=== PATIENT | female | born 1975 | race Caucasian/White ===

== ENCOUNTER 2017-03-31 09:57 | Emergency (ER) | payer MEDICAID ==
[~2017-03-31] VITALS: Ht 167.6 cm; Wt 90.0 kg
[2017-03-31 10:00] VITALS: Ht 167.6 cm; Wt 90.0 kg
[2017-03-31] MEDS ORDERED: ONDANSETRON 4 MG INJ IV STA (10:59)
[2017-03-31] MEDS ORDERED: SOD CHLORIDE 0.9% 1,000 ML IV STA (10:59)
[2017-03-31] MEDS ORDERED: MECLIZINE 12.5 MG TAB PO ONE (11:00)
[2017-03-31 11:57] LABS: BASOPHIL # 0.1 10^3/ul (0.0-0.1); BASOPHILS % 0.6 % (0.0-2.0); EOSINOPHILS # 0.1 10^3/ul (0.0-0.5); EOSINOPHILS % 0.7 % (0.0-7.0); HEMATOCRIT 41.2 % (37.0-47.0); HEMOGLOBIN 14.3 g/dl (12.0-16.0); LYMPHOCYTES # 1.3 10^3/ul (0.8-2.9); LYMPHOCYTES % 11.6 % (15.0-51.0); MEAN CORPUSCULAR HEMOGLOBIN 30.3 pg (29.0-33.0); MEAN CORPUSCULAR HGB CONC 34.7 g/dl (32.0-37.0); MEAN CORPUSCULAR VOLUME 87.3 fl (82.0-101.0); MEAN PLATELET VOLUME 10.1 fl (7.4-10.4); MONOCYTE # 0.6 10^3/ul (0.3-0.9); MONOCYTES % 5.5 % (0.0-11.0); NEUTROPHIL # 8.9 10^3/ul (1.6-7.5); NEUTROPHILS % 81.1 % (39.0-77.0); PLATELET COUNT 286 10^3/UL (140-415); RED BLOOD COUNT 4.72 10^6/ul (4.20-5.40); RED CELL DISTRIBUTION WIDTH 13.1 % (11.5-14.5)
[2017-03-31 12:22] LABS: ALANINE AMINOTRANSFERASE 34 IU/L (13-69); ALBUMIN 4.5 g/dl (3.3-4.9); ALBUMIN/GLOBULIN RATIO 1.15; ALKALINE PHOSPHATASE 111 IU/L (42-121); ANION GAP 16 (8-16); ASPARTATE AMINO TRANSFERASE 30 IU/L (15-46); BILIRUBIN,INDIRECT 0.4 mg/dl (0-1.1); BILIRUBIN,TOTAL 0.4 mg/dl (0.2-1.3); BLOOD UREA NITROGEN 9 mg/dl (7-20); CALCIUM 9.6 mg/dl (8.4-10.2); CARBON DIOXIDE 27 mmol/L (21-31); CHLORIDE 104 mmol/L (97-110); CREATININE 0.77 mg/dl (0.44-1.00); GLUCOSE 111 mg/dl (70-220); POTASSIUM 4.1 mmol/L (3.5-5.1); SODIUM 143 mmol/L (135-144); TOTAL PROTEIN 8.4 g/dl (6.1-8.1)
[2017-03-31 12:34] LABS: TROPONIN-I < 0.012 ng/ml (0.00-0.12)
[2017-03-31 13:00] LABS: ADD UMIC NO; UR ASCORBIC ACID NEGATIVE (NEGATIVE); UR BILIRUBIN (Dip) NEGATIVE (NEGATIVE); UR BLOOD (Dip) NEGATIVE (NEGATIVE); UR CLARITY CLEAR (CLEAR); UR COLOR STRAW (YELLOW); UR GLUCOSE (Dip) NEGATIVE (NEGATIVE); UR KETONES (Dip) 1+ mg/dL (NEGATIVE); UR LEUKOCYTE ESTERASE (Dip) NEGATIVE Leu/ul (NEGATIVE); UR NITRITE (Dip) NEGATIVE (NEGATIVE); UR SPECIFIC GRAVITY (Dip) 1.008 (1.003-1.030); UR TOTAL PROTEIN (Dip) NEGATIVE (NEGATIVE); UR UROBILINOGEN (Dip) NEGATIVE (NEGATIVE)
[2017-03-31] MEDS ORDERED: ONDA4TAB14 PO (13:40)
[2017-03-31] MEDS ORDERED: MECL12.574 PO (13:40)
[2017-03-31] MEDS ORDERED: ACETAMINOPHEN 500 MG TAB PO STA (13:50)
[2017-03-31 13:56] VITALS: BP 134/79; PULSE 73; RESP 16; TEMP 98.3
--- NOTE | 2017-03-31 19:30 | ERD ---
ER Documentation Chief Complaint Chief Complaint Complains of nausea nad vomiting x 2 days HPI Patient is a 41-year-old female with past medical history of hypertension who presents to the ED for concerns of nausea, vomiting, diarrhea 2 days. Patient reports approximately 8-10 episodes of nonbloody, nonbilious vomiting this morning. Patient reports 2-3 episodes of nonbloody, non-mucousy diarrhea. Patient states she started to feel dizzy this morning. Patient states that she feels a room spinning sensation, which is worse with movement especially when standing up. At rest she states dizziness is minimal. Patient denies any headache, visual changes, chest pain, shortness of breath, abdominal pain, back pain or loss consciousness. Patient states she had a [employer] sandwich previous to the onset of her vomiting and diarrhea. Patient denies any slurred speech, unilateral weakness, diplopia, hearing loss. ROS All systems reviewed and are negative except as per history of present illness. Medications Home Meds Active Scripts Ondansetron (Ondansetron Odt) 4 Mg Tab.rapdis, 4 MG PO Q6H Y for NAUSEA AND/OR VOMITING, #10 TAB Prov:NICHOLAS BRAND PA-C 03/31/17 Meclizine Hcl* (Antivert*) 12.5 Mg Tab, 12.5 MG PO Q6H Y for DIZZINESS, #20 TAB Prov:NICHOLAS BRAND PA-C 03/31/17 PMhx/Soc Hx Cardiac Disorders: Yes (Hypertension) Hx Alcohol Use: No Hx Substance Use: No Hx Tobacco Use: No Physical Exam Vitals Vital Signs Date Time Temp Pulse Resp B/P Pulse Ox O2 Delivery O2 Flow Rate FiO2 03/31/17 13:56 98.3 73 16 134/79 100 03/31/17 10:00 97.2 71 20 161/90 100 Physical Exam GENERAL: Well-developed, well-nourished female. Appears in no acute distress. HEAD: Normocephalic, atraumatic. No deformities or ecchymosis. EYE: Pupils equal, round, and reactive to light. Horizontal nystagmus noted when testing EOMs. O conjunctival erythema. No eye discharge. ENT: External ear without any masses or tenderness. Oropharynx is pink without any tonsillar erythema or exudates. No uvula deviation. No kissing tonsils. NECK: Supple. No meningismus. Normal ROM of the neck. LUNG: Clear to auscultation bilaterally. No rhonchi, wheezing, rales or coarse breath sounds. HEART: Regular rate and rhythm. No murmurs, rubs or gallops. ABDOMEN: Soft, nontender, and nondistended. No rebound tenderness, no guarding. (-) McBurney's point tenderness. No CVA tenderness. EXTREMITES: Equal pulses bilaterally. No peripheral clubbing, cyanosis or edema. No unilateral leg swelling. NEUROLOGIC: Alert and oriented x3, cooperative. Mood and affect appropriate to situation. Cranial nerves II through XII are grossly intact. Normal speech. Motor exam: 5/5 strength in upper and lower extremities. Sensory exam: Sensation intact to light touch on all four extremities. Steady gait. No pronator drift. SKIN: Normal color. Warm and dry. No rashes or lesions. Result Diagram: 03/31/17 1150 03/31/17 1150 Results 24 hrs Laboratory Tests Test 03/31/17 11:50 03/31/17 12:00 White Blood Count 11.010^3/ul Red Blood Count 4.7210^6/ul Hemoglobin 14.3g/dl Hematocrit 41.2% Mean Corpuscular Volume 87.3fl Mean Corpuscular Hemoglobin 30.3pg Mean Corpuscular Hemoglobin Concent 34.7g/dl Red Cell Distribution Width 13.1% Platelet Count 95400^3/UL Mean Platelet Volume 10.1fl Neutrophils % 81.1% Lymphocytes % 11.6% Monocytes % 5.5% Eosinophils % 0.7% Basophils % 0.6% Nucleated Red Blood Cells % 0.0/100WBC Neutrophils # 8.910^3/ul Lymphocytes # 1.310^3/ul Monocytes # 0.610^3/ul Eosinophils # 0.110^3/ul Basophils # 0.110^3/ul Nucleated Red Blood Cells # 0.010^3/ul Sodium Level 143mmol/L Potassium Level 4.1mmol/L Chloride Level 104mmol/L Carbon Dioxide Level 27mmol/L Anion Gap 16 Blood Urea Nitrogen 9mg/dl Creatinine 0.77mg/dl Glucose Level 111mg/dl Calcium Level 9.6mg/dl Total Bilirubin 0.4mg/dl Direct Bilirubin 0.00mg/dl Indirect Bilirubin 0.4mg/dl Aspartate Amino Transf (AST/SGOT) 30IU/L Alanine Aminotransferase (ALT/SGPT) 34IU/L Alkaline Phosphatase 111IU/L Troponin I < 0.012ng/ml Total Protein 8.4g/dl Albumin 4.5g/dl Globulin 3.90g/dl Albumin/Globulin Ratio 1.15 Lipase 191U/L Urine Color STRAW Urine Clarity CLEAR Urine pH 7.0 Urine Specific Trumann 1.008 Urine Ketones 1+mg/dL Urine Nitrite NEGATIVEmg/dL Urine Bilirubin NEGATIVEmg/dL Urine Urobilinogen NEGATIVEmg/dL Urine Leukocyte Esterase NEGATIVELeu/ul Urine Hemoglobin NEGATIVEmg/dL Urine Glucose NEGATIVEmg/dL Urine Total Protein NEGATIVEmg/dl Current Medications Medications (Trade) Dose Ordered Sig/Priya Route PRN Reason Start Time Stop Time Status Last Admin Dose Admin Sodium Chloride (NS) 1,000 ml @ 1,000 mls/hr Q1H STAT IV 03/31/17 10:59 03/31/17 11:58 DC 03/31/17 11:45 Ondansetron HCl (Zofran Inj) 4 mg ONCE STAT IV 03/31/17 10:59 03/31/17 11:02 DC 03/31/17 11:49 Meclizine HCl (Antivert) 12.5 mg ONCE ONCE PO 03/31/17 11:00 03/31/17 11:02 DC 03/31/17 11:49 Acetaminophen (Tylenol Tab) 500 mg ONCE STAT PO 03/31/17 13:50 03/31/17 13:51 DC 03/31/17 13:54 Procedures/MDM ED COURSE: The patient was stable throughout ED course. I kept the patient and/or family informed of laboratory and diagnostic imaging results throughout the ED course. EKG: Read by Dr. Ornelas, attending physician. EKG shows sinus bradycardia at a rate of 53 bpm. No arrhythmia or acute ST elevations were noted. MEDICATIONS GIVEN: IV fluids, Zofran, Meclizine Patient tolerated medication well with no adverse reactions. MEDICAL DECISION MAKING: This is a 41-year-old female with history of hypertension presents ED for concerns of nausea, vomiting and diarrhea 2 days. Patient states she started to feel dizzy this morning. Patient describes her dizziness to be a room spinning sensation. Patient states that the dizziness is worse with positional changes including when standing up.. Vital signs were reviewed. Patient was afebrile. Patient was not hypoxic. The patient denied hearing loss, diplopia, slurred speech, unilateral weakness or loss of consciousness. Patient denies any chest pain or shortness of breath. Physical exam findings did reveal that patient had a horizontal nystagmus likely consistent with peripheral vertigo. Full neuro exam was normal. Blood work was obtained. CBC, CMP, troponin are all negative. EKG showed sinus bradycardia, no ST elevations were noted. Patient was given IV fluids, meclizine and Zofran. Patient reported significant improvement in dizziness prior to discharge. Patient did report mild headache prior to discharge. Patient was given Tylenol at that time. Patient denied that it was a severe headache or the worst headache of her life. patient was monitored after receiving Tylenol and did report improvement of headache prior to discharge. At this time, patient's presentation is most consistent with vomiting and diarrhea likely a viral etiology and benign paroxysmal positional vertigo. Low suspicion for intracranial hemorrhage, cerebral infarct, multiple sclerosis, vestibular neuritis, ACS, arrhythmia, electrolyte deficiency, pancreatitis, DKA or an acute abdominal emergency. Patient was advised to continue to drink plenty of fluids and stay hydrated. Patient is given a copy of all imaging studies and blood work obtained today. PRESCRIPTIONS: Meclizine Zofran DISCHARGE: At this time, patient is stable for discharge and outpatient management. I have instructed the patient to follow-up with his/her primary care physician in 1-2 days. If symptoms persist, patient may need to see a specialist for further examinations and testing. I have instructed the patient to promptly return to the ER at any time for any new or worsening symptoms including increased increased pain, fever, nausea, vomiting, numbness, weakness, slurred speech, LOC. The patient and/or family expressed understanding of and agreement with this plan. All questions were answered. Home care instructions were provided. Patients blood pressure was elevated (>120/80) but appears stable without evidence of hypertensive emergency, hypertensive urgency or end-organ failure. I had discussion with the patient about the risks of hypertension. I have advised the patient to follow up with his/her primary care physician for outpatient monitoring and treatment for hypertension in 2-3 days. I have instructed the patient to return to the ER for any new or worsening symptoms including chest pain, shortness of breath, headache, blurred vision, confusion, nausea, vomiting or LOC. D isclaimer: Inadvertent spelling and grammatical errors are likely due to EHR/ dictation software use and do not reflect on the overall quality of patient care. Also, please note that the electronic time recorded on this note does not necessarily reflect the actual time of the patient encounter. Departure Diagnosis: Primary Impression: Vomiting and diarrhea Additional Impression: Vertigo Condition: Stable Patient Instructions: Self-Care for Vomiting and Diarrhea, Inner Ear Problems: Causes of Dizziness (Vertigo) Referrals: [facility] YOU HAVE RECEIVED A MEDICAL SCREENING EXAM AND THE RESULTS INDICATE THAT YOU DO NOT HAVE A CONDITION THAT REQUIRES URGENT TREATMENT IN THE EMERGENCY DEPARTMENT. FURTHER EVALUATION AND TREATMENT OF YOUR CONDITION CAN WAIT UNTIL YOU ARE SEEN IN YOUR DOCTORS OFFICE WITHIN THE NEXT 1-2 DAYS. IT IS YOUR RESPONSIBILITY TO MAKE AN APPOINTMENT FOR FOLOW-UP CARE. IF YOU HAVE A PRIMARY DOCTOR --you should call your primary doctor and schedule an appointment IF YOU DO NOT HAVE A PRIMARY DOCTOR YOU CAN CALL OUR PHYSICIAN REFERRAL HOTLINE AT IF YOU CAN NOT AFFORD TO SEE A PHYSICIAN YOU CAN CHOSE FROM THE FOLLOWING [facility] [address] [facility]. [facility] [address] [facility] [facility] [address] [facility] [facility] [address] [facility] [address] [facility]. [facility]. [address] [facility]. [facility] YOU HAVE RECEIVED A MEDICAL SCREENING EXAM AND THE RESULTS INDICATE THAT YOU DO NOT HAVE A CONDITION THAT REQUIRES URGENT TREATMENT IN THE EMERGENCY DEPARTMENT. FURTHER EVALUATION AND TREATMENT OF YOUR CONDITION CAN WAIT UNTIL YOU ARE SEEN IN YOUR DOCTORS OFFICE WITHIN THE NEXT 1-2 DAYS. IT IS YOUR RESPONSIBILITY TO MAKE AN APPOINTMENT FOR FOLOW-UP CARE. IF YOU HAVE A PRIMARY DOCTOR --you should call your primary doctor and schedule and appointment IF YOU DO NOT HAVE A PRIMARY DOCTOR YOU CAN CALL OUR PHYSICIAN REFERRAL HOTLINE AT . IF YOU CAN NOT AFFORD TO SEE A PHYSICIAN YOU CAN CHOSE FROM THE FOLLOWING [facility] INSTITUTIONS: [facility] [address] [place] [address] [facility] [address] [place] [address] [facility] [address] [place] [address] Additional Instructions: Call your primary care doctor TOMORROW for an appointment during the next 1-2 days.See the doctor sooner or return here if your condition worsens before your appointment time. NICHOLAS BRAND PA-C Mar 31, 2017 19:23
== END 2017-03-31 14:02 | disposition home or self-care (01) ==
LOC: FTE 09:57
DX: R11.10 Vomiting, unspecified (principal); R19.7 Diarrhea, unspecified; R42 Dizziness and giddiness; I10 Essential (primary) hypertension
CPT/HCPCS: 36415; 80053; 81003; 83690; 84484; 85025; 93005; 96374; J2405; J7030; Z7502; Z7610